=== PATIENT | female | born 1940 | race Caucasian/White ===

== ENCOUNTER 2017-01-30 09:34 | Inpatient (IN) | payer OTHER ==
[~2017-01-30] VITALS: Ht 160 cm; Wt 49.7 kg
[2017-01-30] MEDS ORDERED: TRAZODONE150 M1 PO (10:23)
[2017-01-30] MEDS ORDERED: LAMOTRIGINE200 M1 PO (10:24)
[2017-01-30] MEDS ORDERED: APAP/HYDROCODON1 T13 PO (10:25)
[2017-01-30] MEDS ORDERED: FOL1 PO (10:25)
[2017-01-30] MEDS ORDERED: CYMBALTA30 M1 PO (10:25)
[2017-01-30] MEDS ORDERED: ALENDRONATE SOD70 M2 PO (10:26)
[2017-01-30] MEDS ORDERED: DOK100 MG PO (10:26)
[2017-01-30] MEDS ORDERED: METHOTREXATE2.5 M2 PO (10:26)
[2017-01-30] MEDS ORDERED: LANSOPRAZOLE30 M2 PO (10:26)
[2017-01-30 10:59] LABS: BASOPHIL % 0.2 % (0-2); PLATELET COUNT 389 x10^3mcL (130-400); RED CELL DISTRIBUTION WIDTH 14.2 % (11.5-14.5)
[2017-01-30 11:17] LABS: ALBUMIN 3.4 g/dL (3.4-5.0); ALKALINE PHOSPHATASE 82 U/L (46-116); ALT/SGPT 20 U/L (14-59); AST/SGOT 13 U/L (15-37); BILIRUBIN TOTAL 0.6 mg/dL (0.20-1.00); CALCIUM 9.4 mg/dL (8.5-10.1); CARBON DIOXIDE 29.3 mmol/L (21-32); CHLORIDE SERUM 81 mmol/L (98-107); CREATININE SERUM 0.6 mg/dL (0.6-1.0); GLUCOSE SERUM 87 mg/dL (74-106); LIPASE 165 IU/L (73-393); MAGNESIUM 1.8 mg/dL (1.8-2.4); POTASSIUM SERUM 3.4 mmol/L (3.5-5.1); TOTAL PROTEIN, SERUM 6.5 g/dL (6.4-8.2)
[2017-01-30 11:19] LABS: SODIUM SERUM 114 mmol/L (136-145)
[2017-01-30 11:29] LABS: microscopic required? YES; urine erythrocyte TRACE (NEGATIVE)
[2017-01-30 12:51] LABS: T3 TOTAL 0.96 ng/mL
[2017-01-30 12:56] LABS: PHOSPHOROUS 4.4 mg/dL (2.5-4.9)
[2017-01-30 13:02] LABS: CHOLESTEROL/HDL RATIO 2.1
[2017-01-30 13:27] LABS: FREE T4 1.37 ng/dL (0.76-1.46); T4(THYROXINE) 10.7 ug/dL (4.7-13.3)
[2017-01-30 13:41] VITALS: BP 196/89
[2017-01-30 15:03] VITALS: BP 196/89
[2017-01-30 18:00] VITALS: BP 120/75
[2017-01-30 18:49] LABS: CALCIUM 8.5 mg/dL (8.5-10.1); CARBON DIOXIDE 26.6 mmol/L (21-32); CHLORIDE SERUM 86 mmol/L (98-107); CREATININE SERUM 0.6 mg/dL (0.6-1.0); GLUCOSE SERUM 95 mg/dL (74-106); POTASSIUM SERUM 3.2 mmol/L (3.5-5.1)
[2017-01-30 18:51] LABS: SODIUM SERUM 121 mmol/L (136-145)
[2017-01-30 21:52] VITALS: BP 176/69
[2017-01-31 06:07] LABS: RED CELL DISTRIBUTION WIDTH 14.3 % (11.5-14.5)
[2017-01-31 06:15] VITALS: BP 157/67
[2017-01-31 06:15] LABS: PLATELET COUNT 407 x10^3mcL (130-400)
[2017-01-31 06:25] LABS: CARBON DIOXIDE 24.1 mmol/L (21-32); CHLORIDE SERUM 89 mmol/L (98-107); CREATININE SERUM 0.7 mg/dL (0.6-1.0); GLUCOSE SERUM 85 mg/dL (74-106); MAGNESIUM 1.9 mg/dL (1.8-2.4); PHOSPHOROUS 3.3 mg/dL (2.5-4.9); POTASSIUM SERUM 3.3 mmol/L (3.5-5.1); SODIUM SERUM 126 mmol/L (136-145)
[2017-01-31 10:10] VITALS: BP 126/69
[2017-01-31 14:16] VITALS: BP 141/55
[2017-01-31 18:15] VITALS: BP 145/56
[2017-01-31 18:53] LABS: CALCIUM 8.7 mg/dL (8.5-10.1); CARBON DIOXIDE 29.4 mmol/L (21-32); CHLORIDE SERUM 91 mmol/L (98-107); CREATININE SERUM 0.6 mg/dL (0.6-1.0); GLUCOSE SERUM 106 mg/dL (74-106); POTASSIUM SERUM 3.5 mmol/L (3.5-5.1); SODIUM SERUM 128 mmol/L (136-145)
[2017-01-31 21:54] VITALS: BP 159/71
[2017-02-01 05:34] VITALS: BP 118/53
[2017-02-01 06:12] LABS: RED CELL DISTRIBUTION WIDTH 14.5 % (11.5-14.5)
[2017-02-01 06:28] LABS: CALCIUM 8.5 mg/dL (8.5-10.1); CHLORIDE SERUM 94 mmol/L (98-107); CREATININE SERUM 0.7 mg/dL (0.6-1.0); GLUCOSE SERUM 83 mg/dL (74-106); PHOSPHOROUS 3.7 mg/dL (2.5-4.9); POTASSIUM SERUM 3.1 mmol/L (3.5-5.1); SODIUM SERUM 131 mmol/L (136-145)
[2017-02-01 06:48] LABS: BASOPHIL % 2.2 % (0-2); PLATELET COUNT 408 x10^3mcL (130-400)
[2017-02-01 14:00] VITALS: BP 143/67
[2017-02-01 15:03] VITALS: BP 158/75
[2017-02-01 17:10] VITALS: BP 149/61
[2017-02-01 19:50] VITALS: BP 154/60
[2017-02-01 22:07] VITALS: BP 151/65
[2017-02-02] VITALS (7 sets, daily range): BP systolic 138–187; BP diastolic 69–90
[2017-02-02 10:53] LABS: BASOPHIL % 0.3 % (0-2); RED CELL DISTRIBUTION WIDTH 14.3 % (11.5-14.5)
[2017-02-02 10:56] LABS: PLATELET COUNT 472 x10^3mcL (130-400)
[2017-02-02 11:14] LABS: ALBUMIN 3.9 g/dL (3.4-5.0); CALCIUM 9.3 mg/dL (8.5-10.1); CARBON DIOXIDE 30.1 mmol/L (21-32); CHLORIDE SERUM 86 mmol/L (98-107); CREATININE SERUM 0.5 mg/dL (0.6-1.0); GLUCOSE SERUM 98 mg/dL (74-106); MAGNESIUM 1.8 mg/dL (1.8-2.4); PHOSPHOROUS 3.4 mg/dL (2.5-4.9); SODIUM SERUM 126 mmol/L (136-145)
[2017-02-02 11:18] LABS: POTASSIUM SERUM 2.7 mmol/L (3.5-5.1)
[2017-02-02 20:06] LABS: CALCIUM 9.1 mg/dL (8.5-10.1); CARBON DIOXIDE 25.5 mmol/L (21-32); CHLORIDE SERUM 86 mmol/L (98-107); CREATININE SERUM 0.5 mg/dL (0.6-1.0); GLUCOSE SERUM 109 mg/dL (74-106); POTASSIUM SERUM 3.3 mmol/L (3.5-5.1)
[2017-02-02 20:08] LABS: SODIUM SERUM 124 mmol/L (136-145)
[2017-02-03 05:33] VITALS: BP 128/69
[2017-02-03 06:13] LABS: CARBON DIOXIDE 25.9 mmol/L (21-32); CHLORIDE SERUM 88 mmol/L (98-107); CREATININE SERUM 0.8 mg/dL (0.6-1.0); GLUCOSE SERUM 96 mg/dL (74-106); MAGNESIUM 1.7 mg/dL (1.8-2.4); PHOSPHOROUS 4.1 mg/dL (2.5-4.9); POTASSIUM SERUM 3.1 mmol/L (3.5-5.1); SODIUM SERUM 125 mmol/L (136-145)
[2017-02-03 07:36] LABS: BASOPHIL % 0.4 % (0-2); PLATELET COUNT 367 x10^3mcL (130-400); RED CELL DISTRIBUTION WIDTH 14.2 % (11.5-14.5)
[2017-02-03 10:27] VITALS: BP 151/73
[2017-02-03 17:25] VITALS: BP 138/78
[2017-02-03 22:47] VITALS: BP 121/70
[2017-02-04 05:15] VITALS: BP 122/66
[2017-02-04 06:54] LABS: BASOPHIL % 0.9 % (0-2); RED CELL DISTRIBUTION WIDTH 14.3 % (11.5-14.5)
[2017-02-04 06:57] LABS: PLATELET COUNT 403 x10^3mcL (130-400)
[2017-02-04 07:22] LABS: CALCIUM 8.9 mg/dL (8.5-10.1); CARBON DIOXIDE 25.4 mmol/L (21-32); CHLORIDE SERUM 91 mmol/L (98-107); CREATININE SERUM 0.8 mg/dL (0.6-1.0); GLUCOSE SERUM 90 mg/dL (74-106); MAGNESIUM 1.6 mg/dL (1.8-2.4); PHOSPHOROUS 4.8 mg/dL (2.5-4.9); POTASSIUM SERUM 3.6 mmol/L (3.5-5.1); SODIUM SERUM 126 mmol/L (136-145)
[2017-02-04 15:00] LABS: CALCIUM 8.6 mg/dL (8.5-10.1); CARBON DIOXIDE 26.9 mmol/L (21-32); CHLORIDE SERUM 92 mmol/L (98-107); CREATININE SERUM 0.8 mg/dL (0.6-1.0); GLUCOSE SERUM 116 mg/dL (74-106); POTASSIUM SERUM 3.7 mmol/L (3.5-5.1); SODIUM SERUM 126 mmol/L (136-145)
[2017-02-04 17:44] VITALS: Ht 160 cm; Wt 49.7 kg
[2017-02-04 20:13] LABS: CALCIUM 8.5 mg/dL (8.5-10.1); CARBON DIOXIDE 26.6 mmol/L (21-32); CHLORIDE SERUM 94 mmol/L (98-107); CREATININE SERUM 0.7 mg/dL (0.6-1.0); GLUCOSE SERUM 97 mg/dL (74-106); POTASSIUM SERUM 3.9 mmol/L (3.5-5.1); SODIUM SERUM 128 mmol/L (136-145)
[2017-02-04] MEDS ORDERED: AUG500 PO (21:31)
[2017-02-04] MEDS ORDERED: BD LACTINEX1.4 MG PO (21:32)
[2017-02-04] MEDS ORDERED: SOD1 PO (21:33)
[2017-02-04] MEDS ORDERED: DEC150 PO (21:33)
[2017-02-04 21:55] VITALS: BP 131/74
[2017-02-04 22:04] VITALS: BP 131/74
[2017-02-04 22:18] VITALS: BP 142/76
[2017-02-04 22:40] VITALS: BP 142/76
== END 2017-02-04 22:40 | disposition home health service (06) | DRG 177 ==
LOC: ED 09:34 → DU 11:40 → MU 11:40 → DU 13:32 → MU 02-03 06:51
PROVIDERS: Emergency Medicine; Family Medicine; Internal Medicine; ADMIT Family Medicine
PROC: 0DJD8ZZ Inspection of Lower Intestinal Tract, Via Natural or Artificial Opening Endoscopic (ICD-10-PCS; principal; 2017-02-01 12:45)
DX: J69.0 Pneumonitis due to inhalation of food and vomit (principal); N17.0 Acute kidney failure with tubular necrosis; Z68.1 Body mass index [BMI] 19.9 or less, adult; N39.0 Urinary tract infection, site not specified; E22.2 Syndrome of inappropriate secretion of antidiuretic hormone; K59.00 Constipation, unspecified; K57.30 Diverticulosis of large intestine without perforation or abscess without bleeding; R91.8 Other nonspecific abnormal finding of lung field; J44.9 Chronic obstructive pulmonary disease, unspecified; E87.6 Hypokalemia; K58.9 Irritable bowel syndrome, unspecified; F41.9 Anxiety disorder, unspecified; F32.9 Major depressive disorder, single episode, unspecified; I10 Essential (primary) hypertension; M81.0 Age-related osteoporosis without current pathological fracture; M06.9 Rheumatoid arthritis, unspecified; F17.210 Nicotine dependence, cigarettes, uncomplicated; Z85.820 Personal history of malignant melanoma of skin
CPT/HCPCS: 45378; 83880; 84439; 94150; 97110-GP; 97116-GP; 97530-GP; C9113; J0696; J1200; J1610; J1940; J1956; J2175; J2250; J2270; J2310; J2405; J2543; J3010; J3480; J3490; J7030; J7040; J7620; J7626; Q0092; Q0177; Q9967

== ENCOUNTER 2017-02-08 13:23 | Inpatient (IN) | payer OTHER ==
[~2017-02-08] VITALS: Ht 160 cm; Wt 47.6 kg
[~2017-02-08 13:23] MED LIST: ALENDRONATE SOD70 M2 PO; APAP/HYDROCODON1 T13 PO; AUG500 PO; BD LACTINEX1.4 MG PO; CYMBALTA30 M1 PO; DEC150 PO; DOK100 MG PO; FOL1 PO; LAMOTRIGINE200 M1 PO; LANSOPRAZOLE30 M2 PO; METHOTREXATE2.5 M2 PO; SOD1 PO; TRAZODONE150 M1 PO
[2017-02-08 14:40] LABS: CALCIUM 9.9 mg/dL (8.5-10.1); CARBON DIOXIDE 28.8 mmol/L (21-32); CHLORIDE SERUM 99 mmol/L (98-107); CREATININE SERUM 0.9 mg/dL (0.6-1.0); GLUCOSE SERUM 95 mg/dL (74-106); SODIUM SERUM 138 mmol/L (136-145)
[2017-02-08 14:49] LABS: PLATELET COUNT 531 x10^3mcL (130-400)
[2017-02-08 14:54] LABS: ALKALINE PHOSPHATASE 77 U/L (46-116); ALT/SGPT 25 U/L (14-59); AST/SGOT 18 U/L (15-37); BILIRUBIN TOTAL 0.68 mg/dL (0.20-1.00); LIPASE 198 IU/L (73-393); TOTAL PROTEIN, SERUM 7.3 g/dL (6.4-8.2)
[2017-02-08 16:01] LABS: microscopic required? YES; urine erythrocyte NEGATIVE (NEGATIVE)
[2017-02-08] MEDS ORDERED: LAC PO (16:29)
[2017-02-08] MEDS ORDERED: XOPENEX1.25 MG/3 IH (16:29)
[2017-02-08 16:30] LABS: MAGNESIUM 1.8 mg/dL (1.8-2.4); PHOSPHOROUS 4.8 mg/dL (2.5-4.9)
[2017-02-08 16:37] LABS: T3 TOTAL 1.29 ng/mL
[2017-02-08 16:38] LABS: FREE T4 1.37 ng/dL (0.76-1.46); FREE THYROXINE INDEX 3.6 ug/dL (1.4-4.5); T4(THYROXINE) 10.7 ug/dL (4.7-13.3)
[2017-02-08 16:48] LABS: CHOLESTEROL/HDL RATIO 2.1
[2017-02-08 18:06] VITALS: BP 185/103
[2017-02-08 18:52] VITALS: BP 172/95
[2017-02-08 21:34] VITALS: BP 153/87
[2017-02-08 21:48] VITALS: BP 153/87
[2017-02-09 05:27] VITALS: BP 152/70
[2017-02-09 05:58] LABS: BASOPHIL % 1.3 % (0-2)
[2017-02-09 06:38] LABS: PLATELET COUNT 461 x10^3mcL (130-400); RED CELL DISTRIBUTION WIDTH 15.2 % (11.5-14.5)
[2017-02-09 07:04] LABS: CALCIUM 9.2 mg/dL (8.5-10.1); CARBON DIOXIDE 27.9 mmol/L (21-32); CHLORIDE SERUM 104 mmol/L (98-107); CREATININE SERUM 0.8 mg/dL (0.6-1.0); GLUCOSE SERUM 96 mg/dL (74-106); POTASSIUM SERUM 3.7 mmol/L (3.5-5.1); SODIUM SERUM 139 mmol/L (136-145)
[2017-02-09 09:19] VITALS: BP 132/83
[2017-02-09 12:34] VITALS: BP 164/81
[2017-02-09 16:48] VITALS: BP 184/87
[2017-02-09 21:13] VITALS: BP 114/63
[2017-02-10 05:27] VITALS: BP 140/57
[2017-02-10 05:56] LABS: BASOPHIL % 1.8 % (0-2)
[2017-02-10 06:49] LABS: CALCIUM 9.1 mg/dL (8.5-10.1); CARBON DIOXIDE 28.1 mmol/L (21-32); CHLORIDE SERUM 104 mmol/L (98-107); CREATININE SERUM 0.8 mg/dL (0.6-1.0); GLUCOSE SERUM 95 mg/dL (74-106); POTASSIUM SERUM 3.3 mmol/L (3.5-5.1); SODIUM SERUM 141 mmol/L (136-145)
[2017-02-10 06:54] LABS: PLATELET COUNT 434 x10^3mcL (130-400)
[2017-02-10 09:54] VITALS: Ht 160 cm; Wt 47.6 kg
[2017-02-10] MEDS ORDERED: LEVAQUIN500 M1 PO (10:06)
[2017-02-10] MEDS ORDERED: LAC PO (10:06)
[2017-02-10 10:29] VITALS: BP 140/57
== END 2017-02-10 12:42 | disposition home or self-care (01) | DRG 391 ==
LOC: ED 13:23 → DU 15:54
PROVIDERS: Emergency Medicine; ADMIT Family Medicine
DX: K57.30 Diverticulosis of large intestine without perforation or abscess without bleeding (principal); N17.0 Acute kidney failure with tubular necrosis; E22.2 Syndrome of inappropriate secretion of antidiuretic hormone; E87.6 Hypokalemia; F32.9 Major depressive disorder, single episode, unspecified; K72.90 Hepatic failure, unspecified without coma; M06.9 Rheumatoid arthritis, unspecified; J44.9 Chronic obstructive pulmonary disease, unspecified; M79.7 Fibromyalgia; D53.9 Nutritional anemia, unspecified; F41.9 Anxiety disorder, unspecified; M51.37 Other intervertebral disc degeneration, lumbosacral region; F17.210 Nicotine dependence, cigarettes, uncomplicated
CPT/HCPCS: 72072; 83880; 84439; 94150; J0696; J1956; J2270; J3010; J3480; J7030

== ENCOUNTER 2017-04-18 21:16 | Inpatient (IN) | payer OTHER ==
[~2017-04-18] VITALS: Ht 152.4 cm; Wt 57.2 kg
[~2017-04-18 21:16] MED LIST changes: +LAC PO; +LEVAQUIN500 M1 PO; +XOPENEX1.25 MG/3 IH
[2017-04-18 22:34] LABS: PLATELET COUNT 371 x10^3mcL (130-400)
[2017-04-18 22:36] LABS: RED CELL DISTRIBUTION WIDTH 17.3 % (11.5-14.5)
[2017-04-18 22:50] LABS: ALKALINE PHOSPHATASE 257 U/L (46-116); ALT/SGPT 53 U/L (14-59); AST/SGOT 47 U/L (15-37); BILIRUBIN TOTAL 0.7 mg/dL (0.20-1.00); CARBON DIOXIDE 29.9 mmol/L (21-32); CHLORIDE SERUM 91 mmol/L (98-107); CREATININE SERUM 0.8 mg/dL (0.6-1.0); GLUCOSE SERUM 100 mg/dL (74-106); POTASSIUM SERUM 4.4 mmol/L (3.5-5.1)
[2017-04-18 22:51] LABS: ALBUMIN 2.2 g/dL (3.4-5.0); TOTAL PROTEIN, SERUM 5.5 g/dL (6.4-8.2)
[2017-04-18 22:52] LABS: SODIUM SERUM 123 mmol/L (136-145)
[2017-04-18 23:01] LABS: BAND NEUTROPHIL 6 % (0-10); SEGMENTED NEUTROPHILS 90 % (37-75)
[2017-04-18 23:02] LABS: MONOCYTE 2 % (0-7); rbc morphology (normal/abnorm) ABNORMAL (NORMAL)
[2017-04-18] MEDS ORDERED: OXYC PO (23:49)
[2017-04-18] MEDS ORDERED: DEMECLOCYCLINE PO ×2 (23:50)
[2017-04-18] MEDS ORDERED: PRE30 PO (23:51)
[2017-04-18] MEDS ORDERED: CYMBALTA30 M1 PO (23:52)
[2017-04-18] MEDS ORDERED: COLACE100 MG PO (23:52)
[2017-04-18] MEDS ORDERED: NATURE'S BLEND F1 MG PO (23:53)
[2017-04-18] MEDS ORDERED: PROBIOTIC1 EAC4 PO (23:53)
[2017-04-18] MEDS ORDERED: GAS RELIEF EXT125 MG PO (23:54)
[2017-04-18] MEDS ORDERED: K10 PO (23:55)
[2017-04-18] MEDS ORDERED: SOD1 PO (23:55)
[2017-04-18] MEDS ORDERED: MIRTAZAPINE15 M2 PO (23:56)
[2017-04-18] MEDS ORDERED: LAMICTAL200 MG PO (23:56)
[2017-04-18] MEDS ORDERED: PROVENTIL0.09 MG/A1 INH (23:56)
[2017-04-18] MEDS ORDERED: NOR10T PO ×2 (23:57)
[2017-04-18] MEDS ORDERED: XOPENEX3 ML HHN (23:58)
[2017-04-19 01:10] VITALS: BP 123/75
[2017-04-19 01:45] LABS: PHOSPHOROUS 2.9 mg/dL (2.5-4.9)
[2017-04-19 01:54] LABS: FREE T4 0.9 ng/dL (0.76-1.46); FREE THYROXINE INDEX 2.2 ug/dL (1.4-4.5); T4(THYROXINE) 6.5 ug/dL (4.7-13.3)
[2017-04-19 02:04] LABS: CHOLESTEROL/HDL RATIO 2.3
[2017-04-19 02:38] LABS: T3 TOTAL 0.5 ng/mL
[2017-04-19 03:24] LABS: microscopic required? YES; urine erythrocyte NEGATIVE (NEGATIVE)
[2017-04-19 03:42] VITALS: BP 122/75
[2017-04-19 05:34] VITALS: BP 150/78
[2017-04-19 10:11] LABS: CALCIUM 9.1 mg/dL (8.5-10.1); CARBON DIOXIDE 30.3 mmol/L (21-32); CHLORIDE SERUM 90 mmol/L (98-107); CREATININE SERUM 0.8 mg/dL (0.6-1.0); GLUCOSE SERUM 76 mg/dL (74-106); POTASSIUM SERUM 3.7 mmol/L (3.5-5.1); SODIUM SERUM 125 mmol/L (136-145)
[2017-04-19 14:14] VITALS: BP 119/74
[2017-04-19 16:06] VITALS: BP 146/77
[2017-04-19 21:51] VITALS: BP 94/67
[2017-04-20] VITALS (7 sets, daily range): BP systolic 136–148; BP diastolic 55–84
[2017-04-20 06:01] LABS: PLATELET COUNT 346 x10^3mcL (130-400)
[2017-04-20 06:18] LABS: CALCIUM 8.8 mg/dL (8.5-10.1); CARBON DIOXIDE 31.9 mmol/L (21-32); CHLORIDE SERUM 93 mmol/L (98-107); CREATININE SERUM 0.7 mg/dL (0.6-1.0); GLUCOSE SERUM 100 mg/dL (74-106); MAGNESIUM 1.9 mg/dL (1.8-2.4); PHOSPHOROUS 3.3 mg/dL (2.5-4.9); POTASSIUM SERUM 3.5 mmol/L (3.5-5.1); SODIUM SERUM 130 mmol/L (136-145)
[2017-04-20 06:19] LABS: RED CELL DISTRIBUTION WIDTH 16.7 % (11.5-14.5)
[2017-04-20 07:26] LABS: BAND NEUTROPHIL 1 % (0-10); MONOCYTE 3 % (0-7); SEGMENTED NEUTROPHILS 94 % (37-75); rbc morphology (normal/abnorm) NORMAL (NORMAL)
[2017-04-20 15:36] LABS: SOURCE FLUID PLEURAL
[2017-04-20 16:32] LABS: APPEARANCE FLUID CLEAR; COLOR FLUID YELLOW; RBC FLUID 506 /cumm; WBC FLUID 1.11 /cumm
[2017-04-21 05:32] VITALS: BP 160/74
[2017-04-21 07:50] VITALS: BP 129/66
[2017-04-21 16:37] VITALS: BP 118/83
[2017-04-21 22:00] VITALS: BP 113/79
[2017-04-22 06:29] VITALS: BP 126/60
[2017-04-22 08:10] VITALS: BP 111/62
[2017-04-22 08:25] VITALS: BP 126/60
[2017-04-22 12:52] VITALS: BP 125/61
[2017-04-22 17:16] VITALS: BP 116/58
[2017-04-22 21:53] VITALS: BP 135/67
[2017-04-23 06:25] VITALS: BP 119/62
[2017-04-23 07:16] LABS: CALCIUM 8.6 mg/dL (8.5-10.1); CARBON DIOXIDE 30.5 mmol/L (21-32); CHLORIDE SERUM 102 mmol/L (98-107); CREATININE SERUM 0.6 mg/dL (0.6-1.0); GLUCOSE SERUM 99 mg/dL (74-106); MAGNESIUM 2.1 mg/dL (1.8-2.4); PHOSPHOROUS 2.3 mg/dL (2.5-4.9); POTASSIUM SERUM 4.2 mmol/L (3.5-5.1); SODIUM SERUM 136 mmol/L (136-145)
[2017-04-23 08:30] VITALS: BP 118/68
[2017-04-23 09:46] VITALS: BP 108/58
[2017-04-23 10:42] LABS: PLATELET COUNT 276 x10^3mcL (130-400)
[2017-04-23 10:48] LABS: RED CELL DISTRIBUTION WIDTH 17.4 % (11.5-14.5)
[2017-04-23 10:51] LABS: SEGMENTED NEUTROPHILS 98 % (37-75)
[2017-04-23 10:52] LABS: MONOCYTE 2 % (0-7); PLATELET MORPHOLOGY N; rbc morphology (normal/abnorm) ABNORMAL (NORMAL)
[2017-04-23 13:05] VITALS: BP 108/60
[2017-04-23 17:25] VITALS: BP 121/64
[2017-04-23 20:59] VITALS: BP 129/65
[2017-04-24 05:16] VITALS: BP 123/65
[2017-04-24 07:11] LABS: CALCIUM 8.5 mg/dL (8.5-10.1); CARBON DIOXIDE 31.4 mmol/L (21-32); CHLORIDE SERUM 101 mmol/L (98-107); CREATININE SERUM 0.8 mg/dL (0.6-1.0); GLUCOSE SERUM 106 mg/dL (74-106); PHOSPHOROUS 3.4 mg/dL (2.5-4.9); POTASSIUM SERUM 3.5 mmol/L (3.5-5.1); SODIUM SERUM 137 mmol/L (136-145)
[2017-04-24 07:25] LABS: PLATELET COUNT 257 x10^3mcL (130-400)
[2017-04-24 07:30] LABS: RED CELL DISTRIBUTION WIDTH 16.6 % (11.5-14.5)
[2017-04-24 07:49] LABS: MONOCYTE 2 % (0-7); SEGMENTED NEUTROPHILS 96 % (37-75); rbc morphology (normal/abnorm) NORMAL (NORMAL)
[2017-04-24 08:10] VITALS: BP 124/63
[2017-04-24 12:34] VITALS: BP 107/54
[2017-04-24 15:49] VITALS: BP 118/65
[2017-04-24 18:00] VITALS: BP 122/71
[2017-04-24 21:34] VITALS: BP 110/58
[2017-04-25 05:43] VITALS: BP 109/68
[2017-04-25 08:00] VITALS: BP 118/57
[2017-04-25 08:10] VITALS: BP 109/68
[2017-04-25 13:15] VITALS: BP 90/53
[2017-04-25 17:07] VITALS: BP 102/59
[2017-04-25 21:15] VITALS: BP 116/73
[2017-04-26 05:16] VITALS: BP 128/67
[2017-04-26 09:35] VITALS: BP 119/66
[2017-04-26 12:25] VITALS: BP 121/67
[2017-04-26 14:16] VITALS: BP 122/67
[2017-04-26 21:58] VITALS: BP 127/76
[2017-04-27 08:05] VITALS: BP 138/73
[2017-04-27 10:00] VITALS: BP 139/65
[2017-04-27 14:00] VITALS: BP 127/76
[2017-04-27 17:40] VITALS: BP 152/77
[2017-04-27] MEDS ORDERED: DIL2I IV (19:20)
[2017-04-27] MEDS ORDERED: ATI1 PO (19:21)
[2017-04-27] MEDS ORDERED: TYL650S PR (19:21)
[2017-04-27 21:19] VITALS: BP 152/77
== END 2017-04-27 23:06 | DRG 180 ==
LOC: ED 21:16 → DU 04-19 00:18
PROVIDERS: Emergency Medicine; Family Medicine; ADMIT Family Medicine
PROC: 0W9B3ZZ Drainage of Left Pleural Cavity, Percutaneous Approach (ICD-10-PCS; principal; 2017-04-19)
PROC: 0BBL3ZX Excision of Left Lung, Percutaneous Approach, Diagnostic (ICD-10-PCS; 2017-04-24)
DX: C34.82 Malignant neoplasm of overlapping sites of left bronchus and lung (principal); E43 Unspecified severe protein-calorie malnutrition; J96.01 Acute respiratory failure with hypoxia; R53.2 Functional quadriplegia; N17.0 Acute kidney failure with tubular necrosis; J91.0 Malignant pleural effusion; C78.7 Secondary malignant neoplasm of liver and intrahepatic bile duct; C79.51 Secondary malignant neoplasm of bone; R64 Cachexia; E22.2 Syndrome of inappropriate secretion of antidiuretic hormone; J44.9 Chronic obstructive pulmonary disease, unspecified; R91.8 Other nonspecific abnormal finding of lung field; I10 Essential (primary) hypertension; K57.30 Diverticulosis of large intestine without perforation or abscess without bleeding; M06.9 Rheumatoid arthritis, unspecified; M79.7 Fibromyalgia; R74.0 Nonspecific elevation of levels of transaminase and lactic acid dehydrogenase [LDH]; M81.0 Age-related osteoporosis without current pathological fracture; Z98.1 Arthrodesis status; Z66 Do not resuscitate; Z51.5 Encounter for palliative care; Z96.641 Presence of right artificial hip joint; Z68.24 Body mass index [BMI] 24.0-24.9, adult; Z87.891 Personal history of nicotine dependence; Z85.828 Personal history of other malignant neoplasm of skin
CPT/HCPCS: 32405; 32555; 36600; 83880; 84439; 88344; 97110-GP; C1729; J1170; J1200; J1940; J1956; J2001; J2250; J3010; J3490; J7030; Q0092